=== PATIENT | female | born 2000 | race Caucasian/White ===

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

== ENCOUNTER 2018-03-03 15:54 | Emergency (ER) | payer SELFPAY ==
[2018-03-03] MEDS ORDERED: AMOXicillin 250 MG CAP ONE (16:43)
[2018-03-03] MEDS ORDERED: Ibuprofen 600 MG TAB ONE (16:43)
== END 2018-03-03 17:20 | disposition home or self-care (01) ==
LOC: MADERS 15:54
DX: H65.92 Unspecified nonsuppurative otitis media, left ear (principal); J06.9 Acute upper respiratory infection, unspecified
CPT/HCPCS: 99283

== ENCOUNTER 2018-05-21 18:54 | Emergency (ER) | payer SELFPAY ==
[2018-05-21] MEDS ORDERED: Ketorolac Tromethamine 30 MG/ML VIAL ONE (19:14)
[2018-05-21] MEDS ORDERED: Cyclobenzaprine 10 MG TAB ONE (19:14)
== END 2018-05-21 19:56 | disposition home or self-care (01) ==
LOC: MADERS 18:54
DX: S29.012A Strain of muscle and tendon of back wall of thorax, initial encounter (principal); X50.9XXA Other and unspecified overexertion or strenuous movements or postures, initial encounter
CPT/HCPCS: 96372; J1885

== ENCOUNTER 2018-10-02 01:05 | Emergency (ER) | payer SELFPAY ==
--- NOTE | 2018-10-02 08:23 | RAD ---
LEFT ANKLE 3 VIEWS: Date: 10/02/18 COMPARISON: None. HISTORY: Ankle injury 2 days ago, pain. FINDINGS: The talar dome and ankle mortise appear intact. No displaced fracture or dislocation. Lateral examina tion is limited secondary to motion artifact. IMPRESSION: No displaced fracture or dislocation. POS: [facility]
== END 2018-10-02 02:26 | disposition home or self-care (01) ==
LOC: MADERS 01:05
DX: S93.402A Sprain of unspecified ligament of left ankle, initial encounter (principal); X58.XXXA Exposure to other specified factors, initial encounter

== ENCOUNTER 2021-09-20 17:01 | Emergency (ER) | payer SELFPAY ==
[2021-09-20 17:39] LABS: Bilirubin Negative (Negative); Blood, Urine Negative (Negative); Clarity Clear (Clear); Glucose, Urine (Dipstick) Negative (Negative); Ketone, Urine Negative (Negative); Leukocyte Trace (Negative); Nitrite Negative (Negative); Protein, Urine (Dipstick) Negative (Neg-Trace); Urobilinogen 0.2 mg/dL (Less than 2)
[2021-09-20 17:41] LABS: Pregnancy Test - Urine (BHCG) POSITIVE (Negative); Pregu Control Background? CLEAR/WHITE (CLR/WHITE); Pregu Control Bar Appear? YES (CONTROL BAR)
[2021-09-20 17:46] LABS: Bacteria/HPF Rare-Few HPF (None Seen); RBC/HPF 0-3 HPF (0-3); WBC/HPF 0-3 HPF (0-3)
[2021-09-20 18:05] LABS: #Basophils 0.1 thou/uL (0.0-0.2); #Eosinphils 0.1 thou/uL (0.0-0.7); #Lymphocytes 2.6 thou/uL (1.20-3.40); #Monocytes 0.5 thou/uL (0.11-0.59); #Neutrophils 3.5 thou/uL (1.40-6.50); %Basophils 1.1 % (0.0-1.0); %Eosinophils 1.5 % (0.0-10.0); %Lymphocytes 38.3 % (21.0-51.0); %Monocytes 7.6 % (0.0-10.0); %Neutrophils 51.4 % (42.0-75.0); Hemoglobin 11.5 g/dL (12.0-16.0); Mean Corpuscular HGB CONC 34.1 g/dL (32.0-36.0); Mean Corpuscular Hemoglobin 30.8 pg (27.0-31.0); Mean Corpuscular Volume 90.3 fL (78.0-98.0); Mean Platelet Volume 7.1 fL (7.4-10.4); Platelet Count 314 thou/uL (130-400); RBC Distribution Width 11.7 % (11.5-14.5); Red Blood Cell (RBC) Count 3.74 mill/uL (4.20-5.40); White Blood Cell (WBC) Count 6.9 thou/uL (4.8-10.8)
[2021-09-20 18:19] LABS: Anion Gap 13 mmol/L (10-20); BUN (Urea Nitrogen) 5 mg/dL (7.0-18.7); Calc. Creatinine Clearance 0 mL/min (70-130); Calcium 9.7 mg/dL (7.8-10.44); Carbon Dioxide 23 mmol/L (22-29); Chloride 110 mmol/L (98-107); Glucose 125 mg/dL (70-105); Sodium 142 mmol/L (136-145)
== END 2021-09-20 18:41 | disposition short-term general hospital (02) ==
LOC: MADERS 17:01
DX: O20.0 Threatened abortion (principal); Z3A.01 Less than 8 weeks gestation of pregnancy
CPT/HCPCS: 36415; 80048; 81003; 81015; 81025; 84702; 85025; 99284

== ENCOUNTER 2021-12-16 23:27 | Emergency (ER) | payer SELFPAY ==
[2021-12-17] MEDS ORDERED: Albuterol Sulfate 2.5 mg/3 ml Neb ONE (00:33)
[2021-12-17] MEDS ORDERED: Albuterol 200 PUFF (6.7GM INHALER) ONE (00:34)
== END 2021-12-17 01:00 | disposition home or self-care (01) ==
LOC: MADERS 23:27
DX: O99.511 Diseases of the respiratory system complicating pregnancy, first trimester (principal); J20.9 Acute bronchitis, unspecified; J30.9 Allergic rhinitis, unspecified; O21.9 Vomiting of pregnancy, unspecified; O24.419 Gestational diabetes mellitus in pregnancy, unspecified control; Z79.899 Other long term (current) drug therapy; Z3A.12 12 weeks gestation of pregnancy
CPT/HCPCS: 99283; J7611

== ENCOUNTER 2023-02-12 18:03 | Emergency (ER) | payer SELFPAY ==
[2023-02-12 18:34] LABS: Bilirubin Negative (Negative); Blood, Urine Trace (Negative); Clarity Cloudy (Clear); Glucose, Urine (Dipstick) Negative (Negative); Ketone, Urine Negative (Negative); Leukocyte Large (Negative); Nitrite Positive (Negative); Protein, Urine (Dipstick) Negative (Neg-Trace); Specific Gravity, Urine 1.015 (1.005-1.030); Urobilinogen 0.2 mg/dL (Less than 2); pH, Urine 5.5 (5.0-9.0)
[2023-02-12 18:36] LABS: Pregnancy Test - Urine (BHCG) Negative (Negative); Pregu Control Background? CLEAR/WHITE (CLR/WHITE); Pregu Control Bar Appear? YES (CONTROL BAR); Specific Gravity 1.015 (1.002-1.036)
[2023-02-12 18:39] LABS: Bacteria/HPF 4+ HPF (None Seen); CAUTI Indications for Culture Dysuria,urgency,freq; Squamous Epithelial 0-3 HPF (0-3); WBC/HPF Greater Than 50 HPF (0-3)
[2023-02-12 18:40] LABS: Urine Culture Reflex Yes Yes
== END 2023-02-12 18:51 | disposition home or self-care (01) ==
LOC: MADERS 18:03
DX: N39.0 Urinary tract infection, site not specified (principal)
CPT/HCPCS: 81001; 81025; 87077; 87086; 87186; 99283

== ENCOUNTER 2023-05-14 14:28 | Emergency (ER) | payer SELFPAY ==
[2023-05-14] MEDS ORDERED: Ketorolac Tromethamine 30 MG/ML VIAL ONE (14:49)
== END 2023-05-14 15:10 | disposition home or self-care (01) ==
LOC: MADERS 14:28
DX: S66.911A Strain of unspecified muscle, fascia and tendon at wrist and hand level, right hand, initial encounter (principal); D64.9 Anemia, unspecified; E56.9 Vitamin deficiency, unspecified; X58.XXXA Exposure to other specified factors, initial encounter
CPT/HCPCS: 96372; J1885